=== PATIENT | female | born 1975 | race Caucasian/White ===

== ENCOUNTER 2020-09-14 15:17 | Emergency (ER) | payer OTHER ==
[2020-09-14 19:06] LABS: BASOPHIL 0.6 % (0-2); EOSINOPHIL 4.6 % (0-5); HCT 29.6 % (37.0-47.0); HGB 8.6 g/dl (12.5-16.0); LYMPHOCYTE 27.3 % (15-48); MCH 23.6 pg (25.0-31.0); MCHC 29.1 g/dL (32.0-36.0); MCV 81.3 fL (78.0-100.0); MONOCYTE 4.8 % (0-12); MPV 10.1 fL (6.0-9.5); NEUTROPHIL 62.2 % (41-80); NRBC 0; PLT 393 K/uL (150-400); RBC 3.64 M/uL (4.20-5.40); RDW 18.9 % (11.5-14.0); WBC 8.5 K/uL (4.0-10.5)
[2020-09-14 19:24] LABS: ALBUMIN 3.6 g/dL (3.4-5.0); BILIRUBIN - TOTAL 0.2 mg/dL (0.2-1.0); BUN/CREAT RATIO (CALC) 13.3 RATIO; CREATININE 0.83 mg/dL (0.51-0.95); GLOBULIN (CALCULATION) 3.5 g/dL; POTASSIUM 3.8 mmol/L (3.5-5.1); TOTAL PROTEIN 7.1 g/dL (6.4-8.2)
[2020-09-14 19:49] LABS: BILIRUBIN NEGATIVE (NEGATIVE); BLOOD NEGATIVE Ery/uL (NEGATIVE); CLARITY CLEAR (CLEAR); COLOR YELLOW (YELLOW); GLUCOSE (U) NORMAL (NORMAL); LEUKOCYTES NEGATIVE Leu/uL (NEGATIVE); NITRITE NEGATIVE (NEGATIVE); PROTEIN NEGATIVE (NEGATIVE); SPECIFIC GRAVITY 1.015 (1.001-1.030); UROBILINOGEN 0.2 mg/dL (0.2-1.0); pH 6.5 (5.0-9.0)
[2020-09-14] MEDS ORDERED: FLEXERIL5 MG PO (20:44)
[2020-09-14] MEDS ORDERED: LIDOCAINE 5% P1 EACH TOP (20:44)
== END 2020-09-14 21:16 | disposition home or self-care (01) ==
LOC: FER 15:17
PROVIDERS: Emergency Medicine
DX: R10.9 Unspecified abdominal pain (principal); E03.9 Hypothyroidism, unspecified; K21.9 Gastro-esophageal reflux disease without esophagitis; F17.200 Nicotine dependence, unspecified, uncomplicated
CPT/HCPCS: 36415; 71045; 80053; 81003; 83690; 85025